=== PATIENT | female | born 1955 | race African-American/Black ===

== ENCOUNTER 2018-04-21 18:47 | Emergency (ER) | payer SELFPAY ==
[~2018-04-21 18:47] MED LIST: ISOVUE-370 76%-LOCM 1 ML ONE
[2018-04-21 19:34] LABS: #Basophils 0.1 thou/uL (0.0-0.2); #Eosinphils 0.3 thou/uL (0.0-0.7); #Lymphocytes 1.7 thou/uL (1.20-3.40); #Monocytes 0.8 thou/uL (0.11-0.59); #Neutrophils 6.4 thou/uL (1.40-6.50); %Basophils 0.9 % (0.0-1.0); %Eosinophils 2.7 % (0.0-10.0); %Lymphocytes 17.9 % (21.0-51.0); %Monocytes 9.1 % (0.0-10.0); %Neutrophils 69.3 % (42.0-75.0); Mean Corpuscular HGB CONC 34.9 g/dL (32.0-36.0); Mean Corpuscular Hemoglobin 35.4 pg (27.0-31.0); Mean Platelet Volume 7.8 fL (7.4-10.4); Platelet Count 246 thou/uL (130-400); RBC Distribution Width 11.1 % (11.5-14.5); Red Blood Cell (RBC) Count 3.38 mill/uL (4.20-5.40); White Blood Cell (WBC) Count 9.2 thou/uL (4.8-10.8)
[2018-04-21 19:59] LABS: ALT (SGPT) 9 U/L (8-55); AST (SGOT) 19 U/L (5-34); Albumin 4.2 g/dL (3.4-4.8); Alkaline Phosphatase 81 U/L (40-150); Anion Gap 17 mmol/L (10-20); BUN (Urea Nitrogen) 12 mg/dL (9.8-20.1); Bilirubin, Total 0.6 mg/dL (0.2-1.2); Calc. Creatinine Clearance 0 mL/min (70-130); Calcium 9.6 mg/dL (7.8-10.44); Carbon Dioxide 22 mmol/L (23-31); Chloride 105 mmol/L (98-107); Estimated GFR-MDRD 69; Globulin 3.7 g/dL (2.4-3.5); Glucose 76 mg/dL (80-115); Potassium 4.6 mmol/L (3.5-5.1); Protein, Total 7.9 g/dL (6.0-8.3)
[2018-04-21 20:01] LABS: Troponin I Less than 0.010 ng/mL (< 0.028)
[2018-04-21 20:02] LABS: Sodium 139 mmol/L (136-145)
--- NOTE | 2018-04-21 20:49 | CT ---
CT BRAIN WITHOUT CONTRAST: 04/21/18 HISTORY: Syncope. COMPARISON: CT brain 03/01/18. FINDINGS: There is a round hypodensity of the left external capsule which does appear similar to the comparison examination. No evidence for acute hemorrhage or territorial infarction. The paranasal sinuses and mastoids are clear. Globes are normal. IMPRESSION: No acute intracranial abnormality. POS: [facility]
--- NOTE | 2018-04-21 21:20 | CT ---
CT ANGIOGRAM CHEST WITH CONTRAST: 04/21/18 HISTORY: Syncope. COMPARISON: Chest radiograph 03/01/18. FINDINGS: CT angiogram of the chest performed after the intravenous administration of contrast. 3D rendering pr ovided. Pulmonary trunk size is normal. Aortic size is normal. Heart size is upper limits of normal. No proximal segmental pulmonary arterial filling defect. There are numerous bilateral hilar calcified lymph nodes. Thyroid is unremarkable. No adenopathy. No pericardial effusion. Calcified granulomas are present of the spleen. No focal air space consolidation, pneumothorax or effusion. There is mild tubular bronchi ectasis left lower lobe which may be sequela of prior infection. Healing right anterior sixth rib fracture, seventh rib fracture, eighth rib fracture, ninth rib fract ure and tenth rib fracture. There is also posterior right tenth rib fracture making this a segmental fracture. IMPRESSION: 1. No proximal segmental pulmonary artery filling defect. 2. Multiple healing right sided rib fractures. 3. Evidence of prior granulomatous disease. 4. No evidence for pneumonia. POS: [facility]
== END 2018-04-21 21:10 | disposition home or self-care (01) ==
LOC: ERS 18:47
DX: R55 Syncope and collapse (principal); I10 Essential (primary) hypertension; Z87.891 Personal history of nicotine dependence
CPT/HCPCS: 36415; 70450; 71275; 80053; 82553; 84484; 85025; 85379; 93005